=== PATIENT | female | born 1935 | race Caucasian/White ===

== ENCOUNTER 2016-10-19 13:55 | Inpatient (IN) | payer OTHER ==
[~2016-10-19] VITALS: Ht 162.6 cm; Wt 89.5 kg
[~2016-10-19 13:55] MED LIST: AMLO-145 PO; ASPI-716 PO; BENA1TAB13 PO; DONE5TAB32 PO; GABA300S PO; HYDR-3672 PO; MECL25TA PO; METF500T4 PO; NITR-58 PO
[2016-10-19] MEDS ORDERED: FAMOTIDINE 20 MG INJ IV STA (14:55)
[2016-10-19] MEDS ORDERED: ONDANSETRON 4 MG INJ IV STA (14:55)
[2016-10-19] MEDS ORDERED: SOD CHLORIDE 0.9% 1,000 ML IV STA ×2 (14:55→16:47)
[2016-10-19] MEDS ORDERED: GABA300C16 PO (15:18)
[2016-10-19] MEDS ORDERED: SIN25100 PO (15:18)
[2016-10-19] MEDS ORDERED: LORA1TAB PO (15:18)
[2016-10-19] MEDS ORDERED: TERB250T9 PO (15:18)
[2016-10-19] MEDS ORDERED: BENA20TA48 PO (15:18)
[2016-10-19] MEDS ORDERED: PARO-37 PO (15:19)
[2016-10-19] MEDS ORDERED: METF1000 PO (15:19)
[2016-10-19] MEDS ORDERED: DONE10TA7 PO (15:19)
[2016-10-19] MEDS ORDERED: ATOR20TA65 PO (15:19)
[2016-10-19] MEDS ORDERED: MECL-77 PO (15:22)
[2016-10-19] MEDS ORDERED: PANT40TA4 PO (15:22)
[2016-10-19] MEDS ORDERED: ASPI-664 PO (15:23)
[2016-10-19] MEDS ORDERED: HYDR-3671 PO (15:23)
[2016-10-19] MEDS ORDERED: AMLO5TAB4 PO (15:23)
--- NOTE | 2016-10-19 15:34 | RADRPT ---
PROCEDURE: XR Chest. CLINICAL INDICATION: Abdominal pain TECHNIQUE: Chest AP portable COMPARISON: None available FINDINGS: The mediastinal structures are unremarkable. There is calcification of the thoracic aorta (consiste nt with atherosclerosis). The heart is normal in size and configuration. The pulmonary vascularity is normal. There are low lung volumes.. No consolidation is identified. The pleural spaces are u nremarkable. The osseous structures are unremarkable. IMPRESSION: Calcification of the thoracic aorta (consistent with atherosclerosis). No evidence for active cardiopulmonary disease. RPTAT: HG[facility] .Prem Valdez MD, MD Date Time Electronically viewed and signed by .Prem Valdez MD, on 10/19/2016 15:33 .B/
[2016-10-19 15:41] LABS: INR 1.06; PROTIME 13.8 Sec (12.2-14.2); PT RATIO 1.1
[2016-10-19 15:43] LABS: CHLORIDE 101 mmol/L (97-110)
[2016-10-19 15:44] LABS: ALBUMIN 3.9 g/dl (3.3-4.9); POTASSIUM 3.1 mmol/L (3.5-5.1); SODIUM 142 mmol/L (135-144)
[2016-10-19 15:47] LABS: ALANINE AMINOTRANSFERASE 11 IU/L (13-69); ALBUMIN/GLOBULIN RATIO 0.95; ALKALINE PHOSPHATASE 75 IU/L (42-121); AMYLASE 65 U/L (11-123); ANION GAP 20 (8-16); ASPARTATE AMINO TRANSFERASE 17 IU/L (15-46); BILIRUBIN,INDIRECT 0.8 mg/dl (0-1.1); BILIRUBIN,TOTAL 0.8 mg/dl (0.2-1.3); BLOOD UREA NITROGEN 12 mg/dl (7-20); CALCIUM 9.3 mg/dl (8.4-10.2); CARBON DIOXIDE 24 mmol/L (21-31); CREATININE 0.61 mg/dl (0.44-1.00); GLUCOSE 242 mg/dl (70-220)
[2016-10-19 16:04] LABS: BASOPHILS % 0.4 % (0.0-2.0); EOSINOPHILS # 0.1 10^3/ul (0.0-0.5); EOSINOPHILS % 0.8 % (0.0-7.0); HEMATOCRIT 40.3 % (37.0-47.0); HEMOGLOBIN 13.6 g/dl (12.0-16.0); LYMPHOCYTES # 1.8 10^3/ul (0.8-2.9); LYMPHOCYTES % 20.1 % (15.0-51.0); MEAN CORPUSCULAR HEMOGLOBIN 28.5 pg (29.0-33.0); MEAN CORPUSCULAR HGB CONC 33.6 g/dl (32.0-37.0); MEAN CORPUSCULAR VOLUME 84.7 fl (82.0-101.0); MEAN PLATELET VOLUME 8.3 fl (7.4-10.4); MONOCYTE # 0.5 10^3/ul (0.3-0.9); MONOCYTES % 5.3 % (0.0-11.0); NEUTROPHIL # 6.4 10^3/ul (1.6-7.5); NEUTROPHILS % 73.4 % (39.0-77.0); PLATELET COUNT 298 10^3/UL (140-440); RED BLOOD COUNT 4.76 10^6/ul (4.20-5.40); UNCORRECTED WBC 8.7 10^3/ul (4.8-10.8); WHITE BLOOD COUNT 8.7 10^3/ul (4.8-10.8)
[2016-10-19 16:05] LABS: CONDITION 1; TROPONIN-I < 0.012 ng/ml (0.00-0.12)
[2016-10-19 17:23] LABS: ADD UMIC YES; URINE BILIRUBIN (Dip) NEGATIVE (NEGATIVE); URINE BLOOD (Dip) NEGATIVE (NEGATIVE); URINE COLOR YELLOW (YELLOW); URINE KETONES (Dip) NEGATIVE (NEGATIVE); URINE LEUKOCYTE ESTERASE (Dip) 1+ (NEGATIVE); URINE NITRITE (Dip) NEGATIVE (NEGATIVE); URINE TOTAL PROTEIN (Dip) 1+ (NEGATIVE); URINE UROBILINOGEN (Dip) 0.2 E.U./dL (0.1-1.0)
[2016-10-19 17:30] VITALS: TEMP 98.9
[2016-10-19 17:34] LABS: BACTERIA,URINE MODERATE; SQUAMOUS EPITHELIAL CELL,UR MODERATE; URINE RBCS 0-2 /HPF (0)
[2016-10-19] MEDS ORDERED: CEFTRIAXONE 1 GM/50 ML (PMX) 50 ML IVPB ONE (18:30)
[2016-10-19] MEDS ORDERED: ONDANSETRON 4 MG INJ IV PRN ×2 (19:30→22:30)
[2016-10-19] MEDS ORDERED: ACETAMINOPHEN 325 MG TAB PO PRN ×2 (19:30→22:30)
[2016-10-19] MEDS ORDERED: ASPIRIN 325 MG TAB PO ONE (19:30)
[2016-10-19] MEDS ORDERED: SODIUM CHLORIDE 0.9% 1L BAG IV* STA (19:42)
--- NOTE | 2016-10-19 19:42 | ERA ---
ER Documentation Chief Complaint Date/Time DATE: 10/19/16 TIME: 19:32 Chief Complaint CHEST PAIN, ALOC ,NO APPETITE TO EAT HPI This is an 81-year-old Estonian speaking female that was brought into the emergency department by her son with complaints of 2 weeks of generalized myalgias, anorexia, painful urination and loss of urinary incontinence. The patient has also complained of chest pain on the left side but this has been persistent for 2 weeks. The pain does not radiate to the neck arm back or jaw. Is a dull achy sensation that is exacerbated with movement of her left upper extremity and to touch. The pain is 8 out of 10 in intensity. The patient has a history of [id number] diabetes mellitus and hypertension. She has had a previous cerebrovascular accident in 2010 with weakness of the right upper extremity. Her son also indicates she has not been diagnosed with Parkinson's but has developed tremors of the bilateral upper extremities 3 months ago that progressively has worsened. She can ambulate with assistance and with a walker however over the past several days she has felt too weak to ambulate. She has denied a headache or changes in vision. She had a tactile fever with an episode of shaking and chills just prior to arrival and no antipyretics were given. ROS All systems reviewed and are negative except as per history of present illness. Medications Home Meds Reported Medications Aspirin* (Aspirin* EC) 81 Mg Tablet.dr, 81 MG PO DAILY, TAB 10/19/16 Hydralazine Hcl* (Hydralazine Hcl*) 25 Mg Tab, 25 MG PO Q8, #90 TAB 10/19/16 Amlodipine Besylate* (Norvasc*) 5 Mg Tablet, 5 MG PO DAILY, TAB 10/19/16 Meclizine Hcl* (Meclizine Hcl*) 25 Mg Tablet, 25 MG PO Q8H Y for DIZZINESS, TAB 10/19/16 Pantoprazole* (Pantoprazole*) 40 Mg Tablet.dr, 40 MG PO DAILY, TAB 10/19/16 Paroxetine Hcl* (Paroxetine*) 20 Mg Tablet, 20 MG PO DAILY, #30 10/19/16 Metformin Hcl* (Metformin Hcl*) 1,000 Mg Tablet, 1000 MG PO BID, #60 10/19/16 Atorvastatin Calcium (Atorvastatin Calcium) 20 Mg Tablet, 20 MG PO QHS, #30 10/19/16 Donepezil* (Aricept*) 10 Mg Tablet, 10 MG PO DAILY, #30 10/19/16 Gabapentin* (Gabapentin*) 300 Mg Capsule, 300 MG PO DAILY, #30 10/19/16 Terbinafine Hcl* (Terbinafine Hcl*) 250 Mg Tablet, 250 MG PO DAILY, #30 10/19/16 Benazepril Hcl* (Benazepril Hcl*) 20 Mg Tablet, 20 MG PO DAILY, #60 10/19/16 Lorazepam* (Lorazepam*) 1 Mg Tablet, 1 MG PO DAILY for ANXIETY, #30 10/19/16 Carbidopa-Levodopa* (Sinemet*) 25-100 Mg Tab, 1 TAB PO DAILY, #30 10/19/16 Discontinued Reported Medications Metformin* (Glucophage*) 500 Mg Tab, 500 MG PO BID 08/25/13 Amlodipine Besylate* (Amlodipine Besylate*) 5 Mg Tablet, 5 MG PO DAILY 08/25/13 Meclizine Hcl (Motion Relief) 25 Mg Tablet, 25 MG PO BID 08/25/13 Hydralazine Hcl* (Apresoline*) 50 Mg Tab, 50 MG PO TID 08/25/13 Gabapentin (GABAPENTIN) 300 Mg/6 Ml Solution, 300 MG PO HS 08/25/13 Benazepril-Hydrochlorothiazide (Benazepril-Hydrochlorothiazide) 1 Each Tablet, 1 EACH PO BID 08/25/13 Aspirin* (Ecotrin*) 81 Mg Tablet.dr, 81 MG PO DAILY 08/25/13 Donepezil* (Aricept*) 5 Mg Tablet, 5 MG PO daily 08/25/13 Discontinued Scripts Nitrofurantoin Monohyd Macrocr* (Macrobid*) 100 Mg Capsr, 100 MG PO BID for 7 Days, CAP Prov:CARLI PEÑA MD 06/30/16 Allergies Allergies: Coded Allergies: No Known Allergy (Unverified , 08/25/13) PMhx/Soc History of Surgery: No Anesthesia Reaction: No Hx Neurological Disorder: No Hx Respiratory Disorders: No Hx Cardiac Disorders: Yes (htn) Hx Psychiatric Problems: No Hx Miscellaneous Medical Probl: No Hx Alcohol Use: No Hx Substance Use: No Hx Tobacco Use: No Smoking Status: Never smoker Physical Exam Vitals Vital Signs Date Time Temp Pulse Resp B/P Pulse Ox O2 Delivery O2 Flow Rate FiO2 10/19/16 17:30 98.9 84 22 132/84 99 Room Air 10/19/16 15:58 99.6 98 24 142/92 99 Room Air 10/19/16 15:00 Nasal Cannula 10/19/16 14:21 98.4 138 25 136/106 98 Physical Exam Constitutional:Well-developed. Well-nourished. HEENT:Normocephalic. Atraumatic.Pupils were equal round reactive to light. Very dry mucous membranes.No tonsillar exudates. Neck: No nuchal rigidity. No lymphadenopathy. No posterior cervical spine tenderness or step-offs. Respiratory: Not using accessory muscles of respiration.Lungs were clear to auscultation bilaterally. No rhonchi. No rales. No wheezing. Cardiovascular: Regular rate regular rhythm.No murmurs. No rubs were appreciated.S1, S2 normal. Distal pulses are palpable 2+ bilaterally. Reproducible left chest wall tenderness with no crepitus no ecchymosis no flail chest peer GI: Abdomen was soft. Nontender. Non Distended. No pulsatile abdominal masses or bruits. No rebound. No guarding. Bowel sounds were present and normal. Muscle skeletal: Full range of motion of both the bilateral lower extremities. Muscular strength 2 out of 5 in the right upper extremity. Full range of motion of the left upper extremity. Skin: No petechia, no purpura. No lesions on the palms or the soles of the feet. No maculopapular rash. NEURO: Patient was alert, awake, orientated x3.No facial droop. Gait not observed patient was too weak to ambulate. speech had regular rate and rhythm. No focal neurological deficits. Resting tremor of the bilateral upper extremities more prominent on the right than the left Result Diagram: 10/19/16 1520 10/19/16 1520 Results 24 hrs Laboratory Tests Test 10/19/16 15:20 10/19/16 15:35 10/19/16 16:50 Activated Partial Thromboplast Time 26.0Sec Alanine Aminotransferase (ALT/SGPT) 11IU/L Albumin 3.9g/dl Albumin/Globulin Ratio 0.95 Alkaline Phosphatase 75IU/L Amylase Level 65U/L Anion Gap 20 Aspartate Amino Transf (AST/SGOT) 17IU/L Basophils # 0.010^3/ul Basophils % 0.4% Blood Morphology Comment Blood Urea Nitrogen 12mg/dl Calcium Level 9.3mg/dl Carbon Dioxide Level 24mmol/L Chloride Level 101mmol/L Creatinine 0.61mg/dl Direct Bilirubin 0.00mg/dl Eosinophils # 0.110^3/ul Eosinophils % 0.8% Globulin 4.10g/dl Glucose Level 242mg/dl Hematocrit 40.3% Hemoglobin 13.6g/dl INR International Normalized Ratio 1.06 Indirect Bilirubin 0.8mg/dl Lipase 49U/L Lymphocytes # 1.810^3/ul Lymphocytes % 20.1% Mean Corpuscular Hemoglobin 28.5pg Mean Corpuscular Hemoglobin Concent 33.6g/dl Mean Corpuscular Volume 84.7fl Mean Platelet Volume 8.3fl Monocytes # 0.510^3/ul Monocytes % 5.3% Neutrophils # 6.410^3/ul Neutrophils % 73.4% Nucleated Red Blood Cells # 0.010^3/ul Nucleated Red Blood Cells % 0.0/100WBC Platelet Count 80302^3/UL Potassium Level 3.1mmol/L Prothrombin Time 13.8Sec Prothrombin Time Ratio 1.1 Red Blood Count 4.7610^6/ul Red Cell Distribution Width 14.0% Sodium Level 142mmol/L Total Bilirubin 0.8mg/dl Total Protein 8.0g/dl Troponin I < 0.012ng/ml White Blood Count 8.710^3/ul Lactic Acid Level 3.3mmol/L Urine Bacteria MODERATE Urine Bilirubin NEGATIVE Urine Clarity CLEAR Urine Color YELLOW Urine Glucose 0.5%% Urine Hemoglobin NEGATIVE Urine Ketones NEGATIVE Urine Leukocyte Esterase 1+ Urine Microscopic RBC 0-2/HPF Urine Microscopic WBC 10-25/HPF Urine Nitrite NEGATIVE Urine Specific Oriental 1.025 Urine Squamous Epithelial Cells MODERATE Urine Total Protein 1+ Urine Urobilinogen 0.2 E.U./dL Urine pH 5.5 Current Medications Medications (Trade) Dose Ordered Sig/Santiago Route PRN Reason Start Time Stop Time Status Last Admin Dose Admin Sodium Chloride (NS) 1,000 ml @ 1,000 mls/hr Q1H STAT IV 10/19/16 14:55 10/19/16 15:54 DC 10/19/16 15:13 Ondansetron HCl (Zofran Inj) 4 mg ONCE STAT IV 10/19/16 14:55 10/19/16 14:58 DC 10/19/16 15:13 Famotidine 20 mg 20 mg ONCE STAT IV 10/19/16 14:55 10/19/16 14:58 DC 10/19/16 15:13 Sodium Chloride 1,000 ml @ 1,000 mls/hr Q1H STAT IV 10/19/16 16:47 10/19/16 17:46 DC 10/19/16 18:20 Ceftriaxone Sodium (Rocephin) 50 ml @ 100 mls/hr ONCE ONCE IVPB 10/19/16 18:30 10/19/16 18:59 DC Aspirin (Aspirin) 325 mg ONCE ONCE PO 10/19/16 19:30 10/19/16 19:31 DC Ondansetron HCl (Zofran Inj) 4 mg ER BRIDGE PRN IV NAUSEA AND/OR VOMITING 10/19/16 19:30 10/20/16 19:29 Acetaminophen (Tylenol Tab) 650 mg ER BRIDGE PRN PO MILD PAIN/FEVER 10/19/16 19:30 10/20/16 19:29 Sodium Chloride (NS) 2,640 ml BOLUS OVER 2 HOURS STAT IV* 10/19/16 19:42 10/19/16 19:43 DC Potassium Chloride (Klor-Con 10) 10 meq ONCE ONCE PO 10/19/16 20:00 10/19/16 20:01 UNV Procedures/MDM The patient presented to the emergency department complaining of chest pain. My clinical evaluation and workup was to distinguish minor causes of chest pain from acute life threatening cardiopulmonary causes such as myocardial infarction , pulmonary embolism, aortic dissection, esophageal rupture, cardiac tamponade, The patient was placed on a monitoring engineer, continuous pulse oximetry and IV access established by nursing staff. The patients chest pain was reproduced by palpation and horizontal flexion of the arms. It was my clinical impression that the pain was a result of inflammation of the skin and subcutaneous structures of the chest wall versus myocardial ischemia. The patient's troponin was normal. 12 Lead EKG tracing ordered and reviewed by myself showed: Normal sinus rhythm of 95 bpm and no arrhythmia. W[place] interval normal. QRS duration normal. No ST segment elevation No ST segment depression. No changes consistent with acute ischemia. The patient had been given aspirin p.o. The patient also had a urinary tract infection and was given IV ceftriaxone after urine culture had been obtained. The patient's lactic acid was elevated at 3.3. However I did not feel the lactic acidosis was a result of sepsis but rather a result of severe dehydration from her anorexia. The patient however did receive at 30 cc/kg bolus of normal saline. The patient will be admitted in serious condition to the hospitalist to the telemetry service for continued IV hydration, antibiotics and serial EKGs and troponins Patient was hyperglycemic without ketosis and her blood glucose was treated with IV fluids. Patient had mild hypokalemia and was supplemented with oral potassium 10 mEq p.o. Departure Diagnosis: Primary Impression: Urinary tract infection Qualified Code: N30.00 - Acute cystitis without hematuria Additional Impressions: Costochondritis, acute Lactic acidosis Severe dehydration Hyperglycemia without ketosis Condition: Serious TONEY MORALES Oct 19, 2016 19:42
[2016-10-19] MEDS ORDERED: POTASSIUM CHLORIDE (SR) 10 MEQ TAB PO ONE (20:00)
[2016-10-19 21:40] VITALS: BP 138/101; RESP 19
[2016-10-19 22:00] VITALS: Ht 162.6 cm; Wt 89.5 kg
[2016-10-19 22:16] VITALS: PULSE 89
[2016-10-19] MEDS ORDERED: MECLIZINE 25 MG TAB PO PRN (22:30)
[2016-10-19] MEDS ORDERED: BACLOFEN 10 MG TAB PO ONE (22:30)
[2016-10-19] MEDS ORDERED: morphine 2 MG INJ IV PRN (22:30)
[2016-10-19] MEDS ORDERED: NACL 0.9% 3 ML SYG IV SCH (22:30)
[2016-10-19] MEDS ORDERED: NITROGLYCERIN (SL) 0.4 MG TAB SL PRN (22:30)
[2016-10-19] MEDS ORDERED: ALBUTEROL/IPRATROPIUM (NEB) 3 ML AMP HHN PRN (22:30)
[2016-10-19] MEDS: INSULIN GLARGINE [LANtus] 3 ML PEN SC SCH (22:57)
[2016-10-19] MEDS ORDERED: GLUCOSE GEL 15 GRAM TUBE PO PRN ×2 (23:00)
[2016-10-19] MEDS ORDERED: GLUCAGON 1 MG INJ IM PRN (23:00)
[2016-10-19] MEDS ORDERED: DEXTROSE 50% 50 ML SYRINGE IV PRN ×2 (23:00)
[2016-10-19] MEDS ORDERED: GLUCOSE GEL 15 GRAM TUBE BUCCAL PRN (23:00)
[2016-10-20] VITALS (13 sets, daily range): BP systolic 140–186; BP diastolic 66–90; PULSE 63–92; RESP 17–18
[2016-10-20] MEDS: ACCUCHECK XX SCH (01:14)
[2016-10-20 02:08] LABS: CK-MB 1.27 ng/ml (0.0-2.4)
[2016-10-20 02:11] LABS: TROPONIN-I 0.032 ng/ml (0.00-0.12)
[2016-10-20] MEDS: PANTOPRAZOLE (EC) 40 MG TAB PO SCH (05:24)
[2016-10-20 07:36] LABS: BASOPHILS % 0.1 % (0.0-2.0); EOSINOPHILS # 0.1 10^3/ul (0.0-0.5); EOSINOPHILS % 1.9 % (0.0-7.0); HEMATOCRIT 33.4 % (37.0-47.0); HEMOGLOBIN 11.5 g/dl (12.0-16.0); LYMPHOCYTES # 2.1 10^3/ul (0.8-2.9); LYMPHOCYTES % 30.8 % (15.0-51.0); MEAN CORPUSCULAR HEMOGLOBIN 28.9 pg (29.0-33.0); MEAN CORPUSCULAR HGB CONC 34.3 g/dl (32.0-37.0); MEAN CORPUSCULAR VOLUME 84.2 fl (82.0-101.0); MEAN PLATELET VOLUME 7.7 fl (7.4-10.4); MONOCYTE # 0.5 10^3/ul (0.3-0.9); MONOCYTES % 7.1 % (0.0-11.0); NEUTROPHIL # 4.2 10^3/ul (1.6-7.5); NEUTROPHILS % 60.1 % (39.0-77.0); PLATELET COUNT 272 10^3/UL (140-440); RED BLOOD COUNT 3.97 10^6/ul (4.20-5.40); RED CELL DISTRIBUTION WIDTH 13.7 % (11.5-14.5); UNCORRECTED WBC 6.9 10^3/ul (4.8-10.8); WHITE BLOOD COUNT 6.9 10^3/ul (4.8-10.8)
[2016-10-20 07:43] LABS: CONDITION 1
[2016-10-20 07:48] LABS: ALBUMIN 3.3 g/dl (3.3-4.9)
[2016-10-20 07:49] LABS: POTASSIUM 3.1 mmol/L (3.5-5.1)
[2016-10-20] MEDS: INSULIN ASPART [NOVOLOG] 3 ML PEN SC SCH ×4 (07:49→21:22)
[2016-10-20 07:51] LABS: ALBUMIN/GLOBULIN RATIO 1.1; BILIRUBIN,INDIRECT 0.7 mg/dl (0-1.1); BILIRUBIN,TOTAL 0.7 mg/dl (0.2-1.3); CREATININE 0.58 mg/dl (0.44-1.00); TOTAL PROTEIN 6.3 g/dl (6.1-8.1)
[2016-10-20 07:52] LABS: CALCIUM 8.6 mg/dl (8.4-10.2); MAGNESIUM 1.3 mg/dl (1.7-2.5)
[2016-10-20 08:07] LABS: CK-MB 1.28 ng/ml (0.0-2.4)
[2016-10-20 08:11] LABS: TROPONIN-I 0.041 ng/ml (0.00-0.12)
[2016-10-20 08:19] LABS: THYROID STIMULATING HORMONE 2.08 MIU/L (0.465-4.680)
[2016-10-20] MEDS: DONEPEZIL 10 MG TAB PO SCH (08:43)
[2016-10-20] MEDS: PAROXETINE 20 MG TAB PO SCH (08:43)
[2016-10-20] MEDS: CARBIDOPA/LEVODOPA (25/100) TAB PO SCH (08:43)
[2016-10-20] MEDS: ASPIRIN (EC) 81 MG TAB PO SCH (08:43)
[2016-10-20] MEDS: GABAPENTIN 300 MG CAP PO SCH (08:43)
[2016-10-20] MEDS: ENOXAPARIN 40 MG/0.4 ML SYG SC SCH (08:44)
[2016-10-20] MEDS: AMLODIPINE 5 MG TAB PO SCH (08:44)
[2016-10-20] MEDS: TERBINAFINE 250 MG TAB PO SCH (08:44)
[2016-10-20] MEDS: BENAZEPRIL 20 MG TAB PO SCH (08:44)
[2016-10-20] MEDS ORDERED: LORAZEPAM 1 MG TAB PO SCH (09:00)
[2016-10-20] MEDS: CIPROFLOXACIN 400MG/D5W 200 ML IVPB SCH ×2 (09:14→21:16)
--- NOTE | 2016-10-20 09:40 | HP ---
DATE OF ADMISSION: 10/19/2016 TIME SEEN: 2300. CHIEF COMPLAINT: Chest pain, generalized body pain and decreased appetite and dysuria. HISTORY OF PRESENT ILLNESS: The patient is an 81-year-old female with a history of dementia, questio nable Parkinson's disease, CVA x3, hypertension, dyslipidemia, diabetes who presented to the emergen cy department with the above stated chief complaint. Her symptoms have been going on for the past 2 weeks. Also there was a report of painful urination as well as urinary incontinence. Chest pain is left-side and is worse with palpation as well as movement of left arm. The patient also has been e xperiencing tremors of her bilateral upper extremity for the past 3 months, which has been progressi vely getting worse. There was no official diagnosis of Parkinson's disease. When patient presented to the ER she was tachycardic with a heart rate of 138. Otherwise, the rest of her vitals were stable. Laboratory value shows a potassium of 3.1 and glucose of 242. Otherwise , CBC and CMP are within normal limits. Initial lactic acid 3.3, repeat 1.3. Urinalysis is consiste nt with a UTI. IMAGING DATA: Chest x-ray shows no evidence for acute cardiopulmonary disease. The patient was giv en aspirin, Zofran, and was started on Rocephin. REVIEW OF SYSTEMS: Negative except as mentioned in HPI. PAST MEDICAL HISTORY: As per HPI. ALLERGIES: NO KNOWN DRUG ALLERGIES. HOME MEDICATIONS: 1. Terbinafine. 2 Donepezil. 3. Amlodipine. 4. Lipitor. 5. Benazepril. 6. Hydralazine. 7. Aspirin. 8. Sinemet. 9. Gabapentin. 10. Ativan. 11. Paroxetine. 12. Meclizine. 13. Protonix. 14. Metformin. PHYSICAL EXAMINATION: VITAL SIGNS: Blood pressure 138/101, heart rate 91, respiratory rate 19, temperature 97.9, oxygen s aturation 95% on room air. GENERAL: The patient is [place] speaking only, but answering all questions . No acute distres s. She is lying in bed. She looks comfortable. HEENT: No obvious head deformity. Pupils are reactive to light. CARDIOVASCULAR: Tachycardic with regular rhythm. LUNGS: Clear. ABDOMEN: Soft, nontender. No grimaces noted on palpation. There are positive bowel sounds. EXTREMITIES: There is decreased strength on the right upper extremity, also a tremor was noted on t he bilateral upper extremity, right worse on the left. LABORATORY: Proton pump was mentioned in the HPI. IMAGING: Chest x-ray, as mentioned in HPI. IMPRESSION: 1. Urinary tract infection. 2. Chest pain, most likely musculoskeletal. 3. Lactic acidosis. 4. Resting tremor, possibly from Parkinson's. 5. History of stroke cerebrovascular accident x3. 6. Hypertension. 7. History of dyslipidemia. 8. Diabetes. 9. She will be treated for urinary tract infection. Will follow up on urine culture results. Her chest pain is reproducible on palpation and also it is exacerbated by movement of the left arm, so it seems like this is musculoskeletal. Her initial tro ponin is negative and her EKG was no ST-T wave abnormalities. She will however be continued with her home aspirin, Lipitor, DAVID inhibitor. As needed nitro and morphine will be written. For her diabet es, she will be on insulin. We will also continue her home medications including her trying Sinemet for her tremor. She will have physical therapy prior to discharge. Further workup and management per clinical course. Dictated By: ALISON HATCH/JENNIFER Conf#: [id number] DID#: [id number]
[2016-10-20] MEDS: LORAZEPAM 2 MG INJ IV PRN (11:51)
--- NOTE | 2016-10-20 13:01 | RADRPT ---
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 Physician: ALISON MCCULLOUGH Quality: Technically Difficult Study Procedures: Transthoracic echocardiogram with complete 2D, M-Mode, and doppler examination. Indications: Chest Pain. 2D/M Mode Doppler Measurement Value Normal Ranges Measurement Value Normal Ranges LVIDd 2D 4.5 3.5 - 5.6 cm AV Peak Ruel 1.7 m/sec LVIDs 2D 1.8 2.1 - 4.1 cm AV Peak PG 11.0 mmHg FS 2D 59.4 % LVOT Peak Ruel 1.4 m/sec LVPWd 2D 0.9 0.6 - 1.1 cm LVOT Peak PG 7.0 mmHg IVSd 2D 1.0 0.6 - 1.1 cm MV E Peak Ruel 0.7 m/sec IVS/LVPW 2D 1.2 MV A Peak Ruel 1.2 m/sec AoR Diam 2D 2.9 2.0 - 3.7 cm MV E/A 0.6 LA/Ao 2D 1 0 - 1 MV Decel Time 232 msec EDV 2D 89.9 cm3 MV E/A 0.6 ESV 2D 6.0 cm3 TR Peak Ruel 2.3 m/sec LA Dimen 2D 3.3 2.3 - 4.0 cm TR Peak PG 22.0 mmHg RVSP 30.0 mmHg Findings Left Ventricle: Normal left ventricular systolic function. Normal left ventricular cavity size. Normal left ventricular wall thickness. Ejection fraction is visually estimated at 60 %. Tissue Doppler/Mitral Doppler indices are consistent with impaired relaxation (Stage I diastolic dysfunction). Right Ventricle: Normal right ventricular size. Normal right ventricular systolic function. Left Atrium: The left atrium is normal in size. Right Atrium: The right atrium is normal in size. Mitral Valve: Mild mitral leaflet calcification. Moderate mitral annular calcification. Trace mitral regurgitation. Aortic Valve: No hemodynamically significant aortic stenosis by doppler. Aortic cusps appear mildly calcified. Trace aortic valve regurgitation. Tricuspid Valve: Normal appearance of the tricuspid valve. Estimated peak PA systolic pressure 30 mmHg. There is trace tricuspid regurgitation. Pericardium: Normal pericardium with no significant pericardial effusion. Aorta: Normal aortic root. IVC: Normal size and no respiratory collapse consistent with elevated right atrial pressure. Conclusions 1.Normal left ventricular systolic function. Normal left ventricular cavity size. Normal left ventricular wall thickness. Ejection fraction is visually estimated at 60 %. Tissue Doppler/Mitral Doppler indices are consistent with impaired relaxation (Stage I diastolic dysfunction). 2.Mild mitral leaflet calcification. Moderate mitral annular calcification. Trace mitral regurgitation. 3.No hemodynamically significant aortic stenosis by doppler. Aortic cusps appear mildly calcified. Trace aortic valve regurgitation. 4.Normal appearance of the tricuspid valve. Estimated peak PA systolic pressure 30 mmHg. There is trace tricuspid regurgitation. Electronically Signed By: David Rodriguez 20-Oct-2016 13:00:55 -0800 Patient Name: RILEY SANTIZO Study Date: 20-Oct-[id number]
--- NOTE | 2016-10-20 16:28 | PN ---
Date/Time of Note Date/Time of Note DATE: 10/20/16 TIME: 16:21 Assessment/Plan VTE Prophylaxis VTE Prophylaxis Intervention: LMWH Lines/Catheters IV Catheter Type (from Nrsg): Mid Line Urinary Cath still in place: No Assessment/Plan Assessment/Plan 1. Urinary tract infection. on cipro 2. Pain at lower neck, no chest pain slightly elevated troponin, follow up with cardiology 3. Lactic acidosis. 4. Resting tremor, possibly from Parkinson's. 5. History of stroke cerebrovascular accident x3. 6. Hypertension. stable 7. History of dyslipidemia. 8. Diabetes. controlled Subjective 24 Hr Interval Summary Free Text/Dictation no chest pain or shortness of breath. dysuria Exam/Review of Systems Vital Signs Vitals Vital Signs Date Time Temp Pulse Resp B/P Pulse Ox O2 Delivery O2 Flow Rate FiO2 10/20/16 16:00 98.2 88 18 141/66 95 10/19/16 21:08 Room Air Exam Constitutional: alert, oriented, well developed Psych: nl mood/affect, no complaints Head: atraumatic, normocephalic Eyes: EOMI, PERRL, nl conjunctiva, nl lids, nl sclera ENMT: nl external ears & nose, nl lips & teeth, nl nasal mucosa & septum Neck: non-tender, supple Respiratory: clear to auscultation, normal air movement, No congested cough, No crackles/rales, No diminished breath sounds, No intercostal retraction, No labored breathing, No respirations, No tactile fremitus, No wheezing Cardiovascular: nl pulses, regular rate and rhythm, No S3, No S4, No bruits, No diastolic murmur, No edema, No gallop, No irregular rhythm, No jugular venous distention (JVD), No murmurs/extra sounds, No rub, No systolic murmur Gastrointestinal: nl liver, spleen, non-tender, soft, No ascites, No bowel sounds, No distended, No firm, No hepatomegaly, No mass , No rebound or guarding, No splenomegaly, No surgical scars, No tender Musculoskeletal: nl extremities to inspection Extremities: normal pulses, No calf tenderness, No clubbing, No cyanosis, No edema, No palpable cord, No pitting pedal edema, No tenderness Neurological: HOSPITAL MANAGER II-XII intact, nl mental status, nl speech, nl strength Skin: nl turgor, rash or lesions Lymph: nl lymph nodes Results Result Diagram: 10/20/16 0705 10/20/16 0705 Results 24 hrs Laboratory Tests Test 10/19/16 16:50 10/19/16 22:10 10/19/16 22:54 10/20/16 01:12 Urine Bacteria MODERATE Urine Bilirubin NEGATIVE Urine Clarity CLEAR Urine Color YELLOW Urine Glucose 0.5% H Urine Hemoglobin NEGATIVE Urine Ketones NEGATIVE Urine Leukocyte Esterase 1+ H Urine Microscopic RBC 0-2 Urine Microscopic WBC 10-25 Urine Nitrite NEGATIVE Urine Specific Bond 1.025 Urine Squamous Epithelial Cells MODERATE Urine Total Protein 1+ H Urine Urobilinogen 0.2 E.U./dL Urine pH 5.5 Lactic Acid Level 1.3 1.4 Bedside Glucose 144 Test 10/20/16 01:31 10/20/16 07:05 10/20/16 07:29 10/20/16 12:28 Creatine Kinase 62 60 Creatine Kinase Index 2.0 2.1 Creatinine Kinase MB (Mass) 1.27 1.28 Troponin I 0.032 0.041 Alanine Aminotransferase (ALT/SGPT) 21 Albumin 3.3 Albumin/Globulin Ratio 1.10 Alkaline Phosphatase 64 Anion Gap 15 Aspartate Amino Transf (AST/SGOT) 15 Basophils # 0.0 Basophils % 0.1 Blood Morphology Comment Blood Urea Nitrogen 7 Calcium Level 8.6 Carbon Dioxide Level 26 Chloride Level 104 Cholesterol Level 117 Cholesterol/HDL Ratio 3.0 Creatinine 0.58 Direct Bilirubin 0.00 Eosinophils # 0.1 Eosinophils % 1.9 Globulin 3.00 Glucose Level 104 # HDL Cholesterol 39 Hematocrit 33.4 L Hemoglobin 11.5 L Hemoglobin A1c 6.3 H Indirect Bilirubin 0.7 LDL Cholesterol, Calculated 69 Lymphocytes # 2.1 Lymphocytes % 30.8 Magnesium Level 1.3 L Mean Corpuscular Hemoglobin 28.9 L Mean Corpuscular Hemoglobin Concent 34.3 Mean Corpuscular Volume 84.2 Mean Platelet Volume 7.7 Monocytes # 0.5 Monocytes % 7.1 Neutrophils # 4.2 Neutrophils % 60.1 Nucleated Red Blood Cells # 0.0 Nucleated Red Blood Cells % 0.0 Platelet Count 272 Potassium Level 3.1 L Red Blood Count 3.97 L Red Cell Distribution Width 13.7 Sodium Level 142 Thyroid Stimulating Hormone (TSH) 2.080 Total Bilirubin 0.7 Total Protein 6.3 # Triglycerides Level 47 White Blood Count 6.9 # Bedside Glucose 96 130 Medications Medications Current Medications Lorazepam (Ativan) 0.5 mg Q6H PRN IV ANXIETY Last administered on 10/20/16 11: 51; Admin Dose 0.5 MG; Start 10/19/16 at 22:30 Ondansetron HCl (Zofran Inj) 4 mg Q6H PRN IV NAUSEA AND/OR VOMITING; Start at 22:30 Nitroglycerin (Nitroglycerin (Sl Tab) 0.4 Mg) 1 tab Q5M PRN SL CHEST PAIN; Start 10/19/16 at 22:30 Acetaminophen (Tylenol Tab) 650 mg Q6H PRN PO PAIN LEVEL 1-3 OR FEVER; Start at 22:30 Morphine Sulfate (morphine) 2 mg Q4H PRN IV PAIN LEVEL 7-10; Start 10/19/16 at 22:30 Enoxaparin Sodium (Lovenox) 40 mg DAILY SC Last administered on 10/20/16 08:44 ; Admin Dose 40 MG; Start 10/20/16 at 09:00 Amlodipine Besylate (Norvasc) 5 mg DAILY PO Last administered on 10/20/16 08:44 ; Admin Dose 5 MG; Start 10/20/16 at 09:00 Aspirin (Halfprin) 81 mg DAILY PO Last administered on 10/20/16 08:43; Admin Dose 81 MG; Start 10/20/16 at 09:00 Atorvastatin Calcium (Lipitor) 20 mg QHS PO ; Start 10/20/16 at 21:00 Benazepril HCl (Lotensin) 20 mg DAILY PO Last administered on 10/20/16 08:44; Admin Dose 20 MG; Start 10/20/16 at 09:00 Carbidopa/Levodopa (Sinemet (25/ 100)) 1 tab DAILY PO Last administered on 08:43; Admin Dose 1 TAB; Start 10/20/16 at 09:00 Donepezil HCl (Aricept) 10 mg DAILY PO Last administered on 10/20/16 08:43; Admin Dose 10 MG; Start 10/20/16 at 09:00 Gabapentin (Neurontin) 300 mg DAILY PO Last administered on 10/20/16 08:43; Admin Dose 300 MG; Start 10/20/16 at 09:00 Hydralazine HCl (Apresoline) 25 mg Q8 PO Last administered on 10/20/16 12:08; Admin Dose 25 MG; Start 10/19/16 at 22:30 Meclizine HCl (Antivert) 25 mg Q8H PRN PO DIZZINESS; Start 10/19/16 at 22:30 Pantoprazole (Protonix Tab) 40 mg DAILY@06 PO Last administered on 10/20/16 05: 24; Admin Dose 40 MG; Start 10/20/16 at 06:00 Paroxetine HCl (Paxil) 20 mg DAILY PO Last administered on 10/20/16 08:43; Admin Dose 20 MG; Start 10/20/16 at 09:00 Terbinafine HCl 250 mg 250 mg DAILY PO Last administered on 10/20/16 08:44; Admin Dose 250 MG; Start 10/20/16 at 09:00 Ciprofloxacin/ Dextrose (Cipro Ivpb) 200 ml @ 200 mls/hr Q12 IVPB Last administered on 10/20/16 09:14; Admin Dose 200 MLS/HR; Start 10/20/16 at 09:00 Insulin Glargine (Lantus) 12 unit QHS SC Last administered on 10/19/16 22:57; Admin Dose 12 UNIT; Start 10/19/16 at 22:30 Diagnostic Test (Pha) (Accucheck) 1 ea 02 XX ; Start 10/20/16 at 02:00 Miscellaneous Information 1 ea NOTE XX ; Start 10/19/16 at 23:00 Glucose (Glutose) 15 gm Q15M PRN PO DECREASED GLUCOSE; Start 10/19/16 at 23:00 Glucose (Glutose) 22.5 gm Q15M PRN PO DECREASED GLUCOSE; Start 10/19/16 at 23: 00 Dextrose (D50w Syringe) 25 ml Q15M PRN IV DECREASED GLUCOSE; Start 10/19/16 at 23:00 Dextrose (D50w Syringe) 50 ml Q15M PRN IV DECREASED GLUCOSE; Start 10/19/16 at 23:00 Glucagon (Glucagen) 1 mg Q15M PRN IM DECREASED GLUCOSE; Start 10/19/16 at 23:00 Glucose (Glutose) 15 gm Q15M PRN BUCCAL DECREASED GLUCOSE; Start 10/19/16 at 23 :00 YI FLORES MD Oct 20, 2016 16:28
[2016-10-20] MEDS ORDERED: POTASSIUM CHLORIDE (SR) 20 MEQ TAB PO STA (16:29)
[2016-10-20] MEDS ORDERED: MAGNESIUM SULFATE 2 GM/50 ML 50 ML IVPB ONE (16:30)
[2016-10-20] MEDS: ATORVASTATIN 20 MG TAB PO SCH (21:12)
[2016-10-20] MEDS: INSULIN GLARGINE [LANtus] 3 ML PEN SC SCH (21:22)
[2016-10-21] VITALS (12 sets, daily range): BP systolic 116–180; BP diastolic 58–88; PULSE 69–97; RESP 15–19
[2016-10-21] MEDS: ACCUCHECK XX SCH (02:00)
[2016-10-21] MEDS: LORAZEPAM 2 MG INJ IV PRN (05:24)
[2016-10-21] MEDS: PANTOPRAZOLE (EC) 40 MG TAB PO SCH (05:24)
[2016-10-21 07:53] LABS: BASOPHILS % 0.3 % (0.0-2.0); EOSINOPHILS % 0.5 % (0.0-7.0); HEMATOCRIT 35.3 % (37.0-47.0); HEMOGLOBIN 12.1 g/dl (12.0-16.0); LYMPHOCYTES # 1.3 10^3/ul (0.8-2.9); LYMPHOCYTES % 16.7 % (15.0-51.0); MEAN CORPUSCULAR HEMOGLOBIN 28.8 pg (29.0-33.0); MEAN CORPUSCULAR HGB CONC 34.2 g/dl (32.0-37.0); MEAN CORPUSCULAR VOLUME 84.1 fl (82.0-101.0); MEAN PLATELET VOLUME 7.9 fl (7.4-10.4); MONOCYTE # 0.4 10^3/ul (0.3-0.9); MONOCYTES % 5.3 % (0.0-11.0); NEUTROPHILS % 77.2 % (39.0-77.0); PLATELET COUNT 310 10^3/UL (140-440); RED BLOOD COUNT 4.19 10^6/ul (4.20-5.40); RED CELL DISTRIBUTION WIDTH 14.2 % (11.5-14.5); UNCORRECTED WBC 7.8 10^3/ul (4.8-10.8); WHITE BLOOD COUNT 7.8 10^3/ul (4.8-10.8)
[2016-10-21 07:58] LABS: POTASSIUM 3.3 mmol/L (3.5-5.1)
[2016-10-21 08:00] LABS: CREATININE 0.52 mg/dl (0.44-1.00)
[2016-10-21 08:01] LABS: MAGNESIUM 1.8 mg/dl (1.7-2.5)
[2016-10-21 08:04] LABS: CONDITION 1
[2016-10-21] MEDS: CIPROFLOXACIN 400MG/D5W 200 ML IVPB SCH ×2 (08:52→20:20)
[2016-10-21] MEDS: CARBIDOPA/LEVODOPA (25/100) TAB PO SCH (08:55)
[2016-10-21] MEDS: AMLODIPINE 5 MG TAB PO SCH (08:55)
[2016-10-21] MEDS: DONEPEZIL 10 MG TAB PO SCH (08:55)
[2016-10-21] MEDS: PAROXETINE 20 MG TAB PO SCH (08:55)
[2016-10-21] MEDS: ASPIRIN (EC) 81 MG TAB PO SCH (08:55)
[2016-10-21] MEDS: GABAPENTIN 300 MG CAP PO SCH (08:55)
[2016-10-21] MEDS: TERBINAFINE 250 MG TAB PO SCH (08:55)
[2016-10-21] MEDS: BENAZEPRIL 20 MG TAB PO SCH (08:55)
[2016-10-21] MEDS: INSULIN ASPART [NOVOLOG] 3 ML PEN SC SCH ×4 (08:56→20:23)
[2016-10-21] MEDS: ENOXAPARIN 40 MG/0.4 ML SYG SC SCH (08:56)
[2016-10-21] MEDS ORDERED: POTASSIUM CHLORIDE (SR) 20 MEQ TAB PO STA (15:04)
[2016-10-21] MEDS ORDERED: CIPR-193 PO (15:27)
--- NOTE | 2016-10-21 15:36 | PN ---
Date/Time of Note Date/Time of Note DATE: 10/21/16 TIME: 15:34 Assessment/Plan VTE Prophylaxis VTE Prophylaxis Intervention: LMWH Lines/Catheters IV Catheter Type (from Nrs): [place] Urinary Cath still in place: No Assessment/Plan Assessment/Plan 1. Urinary tract infection. on cipro 2. Pain at lower neck, no chest pain slightly elevated troponin, follow up with cardiology 3. Lactic acidosis. 4. Resting tremor, possibly from Parkinson's. 5. History of stroke cerebrovascular accident x3. 6. Hypertension. stable 7. History of dyslipidemia. 8. Diabetes. controlled 9. Hypokalemia, KCL Subjective 24 Hr Interval Summary Free Text/Dictation no chest pain, no shortness of breath. afebrile Exam/Review of Systems Vital Signs Vitals Vital Signs Date Time Temp Pulse Resp B/P Pulse Ox O2 Delivery O2 Flow Rate FiO2 10/21/16 12:16 83 10/21/16 11:57 99.0 18 144/88 96 10/19/16 21:08 Room Air Intake and Output 10/20/16 10/20/16 10/21/16 15:00 23:00 07:00 Intake Total 600 ml Balance 600 ml Exam Constitutional: alert, well developed Psych: nl mood/affect, no complaints Head: atraumatic, normocephalic Eyes: EOMI, PERRL, nl conjunctiva, nl lids ENMT: nl external ears & nose, nl lips & teeth, nl nasal mucosa & septum Neck: non-tender, supple Respiratory: clear to auscultation, normal air movement, No congested cough, No crackles/rales, No diminished breath sounds, No intercostal retraction, No labored breathing, No respirations, No tactile fremitus, No wheezing Cardiovascular: nl pulses, regular rate and rhythm, No S3, No S4, No bruits, No diastolic murmur, No edema, No gallop, No irregular rhythm, No jugular venous distention (JVD), No murmurs/extra sounds, No rub, No systolic murmur Gastrointestinal: nl liver, spleen, non-tender, soft, No ascites, No bowel sounds, No distended, No firm, No hepatomegaly, No mass , No rebound or guarding, No splenomegaly, No surgical scars, No tender Musculoskeletal: nl extremities to inspection, nl gait and stance, No joint tenderness, No muscle tone, No muscle weakness, No range of motion, No spine non-tender, No swelling Extremities: normal pulses, No calf tenderness, No clubbing, No cyanosis, No edema, No palpable cord, No pitting pedal edema, No tenderness Neurological: DROSS PULLER II-XII intact, nl mental status, nl speech, nl strength Skin: nl turgor, rash or lesions Lymph: nl lymph nodes Results Result Diagram: 10/21/16 0650 10/21/16 0650 Results 24 hrs Laboratory Tests Test 10/20/16 17:18 10/20/16 21:06 10/21/16 03:00 10/21/16 06:50 Bedside Glucose 200 202 145 Anion Gap 19 H Basophils # 0.0 Basophils % 0.3 Blood Morphology Comment Blood Urea Nitrogen 10 Calcium Level 9.0 Carbon Dioxide Level 23 Chloride Level 103 Creatinine 0.52 Eosinophils # 0.0 Eosinophils % 0.5 Glucose Level 135 Hematocrit 35.3 L Hemoglobin 12.1 Lymphocytes # 1.3 Lymphocytes % 16.7 Magnesium Level 1.8 Mean Corpuscular Hemoglobin 28.8 L Mean Corpuscular Hemoglobin Concent 34.2 Mean Corpuscular Volume 84.1 Mean Platelet Volume 7.9 Monocytes # 0.4 Monocytes % 5.3 Neutrophils # 6.0 Neutrophils % 77.2 H Nucleated Red Blood Cells # 0.0 Nucleated Red Blood Cells % 0.0 Platelet Count 310 Potassium Level 3.3 L Red Blood Count 4.19 L Red Cell Distribution Width 14.2 Sodium Level 142 Troponin I 0.020 White Blood Count 7.8 Test 10/21/16 08:16 10/21/16 11:54 Bedside Glucose 147 184 Medications Medications Current Medications Lorazepam (Ativan) 0.5 mg Q6H PRN IV ANXIETY Last administered on 10/21/16t 05: 24; Admin Dose 0.5 MG; Start 10/19/16 at 22:30 Ondansetron HCl (Zofran Inj) 4 mg Q6H PRN IV NAUSEA AND/OR VOMITING; Start at 22:30 Nitroglycerin (Nitroglycerin (Sl Tab) 0.4 Mg) 1 tab Q5M PRN SL CHEST PAIN; Start 10/19/16 at 22:30 Acetaminophen (Tylenol Tab) 650 mg Q6H PRN PO PAIN LEVEL 1-3 OR FEVER; Start at 22:30 Morphine Sulfate (morphine) 2 mg Q4H PRN IV PAIN LEVEL 7-10; Start 10/19/16 at 22:30 Enoxaparin Sodium (Lovenox) 40 mg DAILY SC Last administered on 10/21/16 08:56 ; Admin Dose 40 MG; Start 10/20/16 at 09:00 Amlodipine Besylate (Norvasc) 5 mg DAILY PO Last administered on 10/21/16 08:55 ; Admin Dose 5 MG; Start 10/20/16 at 09:00 Aspirin (Halfprin) 81 mg DAILY PO Last administered on 10/21/16 08:55; Admin Dose 81 MG; Start 10/20/16 at 09:00 Atorvastatin Calcium (Lipitor) 20 mg QHS PO Last administered on 10/20/16 21:12 ; Admin Dose 20 MG; Start 10/20/16 at 21:00 Benazepril HCl (Lotensin) 20 mg DAILY PO Last administered on 10/21/16 08:55; Admin Dose 20 MG; Start 10/20/16 at 09:00 Carbidopa/Levodopa (Sinemet (25/ 100)) 1 tab DAILY PO Last administered on 08:55; Admin Dose 1 TAB; Start 10/20/16 at 09:00 Donepezil HCl (Aricept) 10 mg DAILY PO Last administered on 10/21/16 08:55; Admin Dose 10 MG; Start 10/20/16 at 09:00 Gabapentin (Neurontin) 300 mg DAILY PO Last administered on 10/21/16 08:55; Admin Dose 300 MG; Start 10/20/16 at 09:00 Hydralazine HCl (Apresoline) 25 mg Q8 PO Last administered on 10/21/16 13:16; Admin Dose 25 MG; Start 10/19/16 at 22:30 Meclizine HCl (Antivert) 25 mg Q8H PRN PO DIZZINESS; Start 10/19/16 at 22:30 Pantoprazole (Protonix Tab) 40 mg DAILY@06 PO Last administered on 10/21/16 05: 24; Admin Dose 40 MG; Start 10/20/16 at 06:00 Paroxetine HCl (Paxil) 20 mg DAILY PO Last administered on 10/21/16 08:55; Admin Dose 20 MG; Start 10/20/16 at 09:00 Terbinafine HCl 250 mg 250 mg DAILY PO Last administered on 10/21/16 08:55; Admin Dose 250 MG; Start 10/20/16 at 09:00 Ciprofloxacin/ Dextrose (Cipro Ivpb) 200 ml @ 200 mls/hr Q12 IVPB Last administered on 10/21/16 08:52; Admin Dose 200 MLS/HR; Start 10/20/16 at 09:00 Insulin Glargine (Lantus) 12 unit QHS SC Last administered on 10/20/16 21:22; Admin Dose 12 UNIT; Start 10/19/16 at 22:30 Diagnostic Test (Pha) (Accucheck) 1 ea 02 XX Last administered on 10/21/16 02: 00; Admin Dose 1 EA; Start 10/20/16 at 02:00 Miscellaneous Information 1 ea NOTE XX ; Start 10/19/16 at 23:00 Glucose (Glutose) 15 gm Q15M PRN PO DECREASED GLUCOSE; Start 10/19/16 at 23:00 Glucose (Glutose) 22.5 gm Q15M PRN PO DECREASED GLUCOSE; Start 10/19/16 at 23: 00 Dextrose (D50w Syringe) 25 ml Q15M PRN IV DECREASED GLUCOSE; Start 10/19/16 at 23:00 Dextrose (D50w Syringe) 50 ml Q15M PRN IV DECREASED GLUCOSE; Start 10/19/16 at 23:00 Glucagon (Glucagen) 1 mg Q15M PRN IM DECREASED GLUCOSE; Start 10/19/16 at 23:00 Glucose (Glutose) 15 gm Q15M PRN BUCCAL DECREASED GLUCOSE; Start 10/19/16 at 23 :00 YI FLORES MD Oct 21, 2016 15:36
[2016-10-21] MEDS: ATORVASTATIN 20 MG TAB PO SCH (20:18)
[2016-10-21] MEDS: INSULIN GLARGINE [LANtus] 3 ML PEN SC SCH (20:30)
--- NOTE | 2016-10-21 21:39 | CONS ---
DATE OF ADMISSION: 10/19/2016 DATE OF CONSULTATION: 10/21/2016 TYPE OF CONSULTATION: Cardiology. REASON FOR CONSULTATION: Chest pain. REQUESTING PHYSICIAN: Dr. Bangura from the hospitalist service. HISTORY OF PRESENT ILLNESS: Ms. Cason is an 81-year-old female with a history of prior CVA x3, h ypertension, dyslipidemia, diabetes mellitus who initially presented with complaints of neck pain an d, per report, chest pain. The patient since admit to the hospital has had somewhat labile blood pr essures, most recently 116/58. The patient has had negative troponins greater than 3, ruling out fo r acute myocardial infarction, underwent a 2D echo interpreted by myself revealing a preserved left ventricular ejection fraction of 60% with diastolic dysfunction; trace aortic, tricuspid and mitral regurgitation. The patient's electrocardiogram on admit had revealed normal sinus rhythm, rate of 9 5 with left axis deviation, borderline anterior R-wave progression, nonspecific ST-T abnormalities. PAST MEDICAL HISTORY: As above in HPI. MEDICATIONS CURRENTLY IN HOSPITAL: 1. Lipitor 20 mg at bedtime. 2. Lovenox ____ mg subcutaneous daily. 3. Norvasc 5 mg daily. 4. Aspirin 81 mg daily. 5. Benazepril 20 mg daily. 6. Sinemet 25/100 one tablet p.o. daily. 7. Aricept 10 mg daily. 8. Neurontin 200 mg daily. 9. Paxil 20 mg daily. 10. Lamisil 250 mg daily. 11. Ciprofloxacin. 12. Hydralazine 25 mg p.o. q.8. 13. Meclizine p.r.n. 14. Lantus 12 units subcutaneous at bedtime. ALLERGIES: NO KNOWN DRUG ALLERGIES. PAST SOCIAL HISTORY: No tobacco, ETOH, illicit drug use. FAMILY HISTORY: No history of sudden cardiac or early CAD. REVIEW OF SYSTEMS: As above in HPI. CONSTITUTIONAL: No fevers, chills. PULMONARY: No current signs of respiratory compromise. GASTROINTESTINAL: No vomiting. GENITOURINARY: No hematuria. MUSCULOSKELETAL: Degenerative joint disease. PSYCHIATRIC: No documented psychiatric history. NEUROLOGIC: Parkinson's. PHYSICAL EXAMINATION: VITAL SIGNS: Temperature of 99.5, blood pressure 116/58, pulse 82, respiratory rate 19, saturating 97%. GENERAL: The patient is alert, awake, in no acute distress. NECK: JVP approximately 8 cm of water. CHEST: Decreased air movement at the bases. HEART: Regular rate and rhythm. Normal S1, S2. I/ systolic murmur. Nondisplaced PMI. ABDOMEN: Positive bowel sounds. Soft. EXTREMITIES: No edema. 1+ pulses bilaterally at posterior tibial. LABORATORY DATA: As above in HPI with most recent from today: Sodium 142, potassium 3.3, creatinin e 0.5, BUN of 10. Troponin negative times greater than 3. White blood cell count 7.8, hemoglobin 1 2.1, platelet count 310. IMAGING STUDIES: As above in HPI. No further imaging for my review at this time. ELECTROCARDIOGRAM: As above in HPI. No further electrocardiograms for my review at this time. IMPRESSION: 1. Chest pain, currently resolved by son at bedside with negative troponins x3 and normal ejection fraction by echocardiogram. 2. Hypertension, labile but currently reasonable. 3. Dyslipidemia. 4. Altered mental state. 5. History of cerebrovascular accident. 6. Neck pain. 7. Parkinson's. 8. Diabetes mellitus. 9. Urinary tract infection. RECOMMENDATIONS: 1. At this time would maintain the patient on telemetry monitoring, follow rhythm and rate closely. 2. Continue the patient's aspirin for prophylaxis against cardiac events. 3. Continue the patient's current Norvasc and benazepril for control of blood pressure as well as h ydralazine. 4. Will give patient sublingual nitroglycerin for any recurrent episodes of chest pain at this time . 5. Check a repeat EKG post rule-out to assess for any significant changes and continue the patient' s current statin therapy. Additionally, the patient will be continued on her antibiotic therapy and continue to get pain control. 6. The patient's electrocardiogram does not show any new changes, and I believe this patient will b e reasonable from cardiac standpoint for discharge with outpatient stress testing for ongoing sympto ms. Thank you for allowing me to take part in the care of this patient. I will continue to follow along very closely with you with further recommendations to be made as [facility] Dictated By: CLARA DA SILVA/JENNIFER Conf#: [id number] DID#: [id number] CC: YI BANGURA MD;*EndCC*
[2016-10-22] VITALS (12 sets, daily range): BP systolic 92–118; BP diastolic 49–64; PULSE 69–98; RESP 15–18
[2016-10-22] MEDS: ACCUCHECK XX SCH (02:00)
[2016-10-22] MEDS: PANTOPRAZOLE (EC) 40 MG TAB PO SCH (05:32)
[2016-10-22] MEDS: INSULIN ASPART [NOVOLOG] 3 ML PEN SC SCH ×3 (08:00→17:40)
[2016-10-22] MEDS: PAROXETINE 20 MG TAB PO SCH (08:58)
[2016-10-22] MEDS: DONEPEZIL 10 MG TAB PO SCH (08:58)
[2016-10-22] MEDS: TERBINAFINE 250 MG TAB PO SCH (08:58)
[2016-10-22] MEDS: CIPROFLOXACIN 400MG/D5W 200 ML IVPB SCH (08:58)
[2016-10-22] MEDS: CARBIDOPA/LEVODOPA (25/100) TAB PO SCH (08:58)
[2016-10-22] MEDS: GABAPENTIN 300 MG CAP PO SCH (08:58)
[2016-10-22] MEDS: ASPIRIN (EC) 81 MG TAB PO SCH (08:58)
[2016-10-22] MEDS: AMLODIPINE 5 MG TAB PO SCH (08:59)
[2016-10-22] MEDS: BENAZEPRIL 20 MG TAB PO SCH (08:59)
[2016-10-22] MEDS: ENOXAPARIN 40 MG/0.4 ML SYG SC SCH (09:07)
--- NOTE | 2016-10-22 15:37 | DS ---
Date/Time of Note Date/Time of Note DATE: 10/22/16 TIME: 15:26 Discharge Summary Admission/Discharge Info Admit Date/Time Oct 19, 2016 at 19:07 Discharge Date/Time Final Diagnosis 1. Urinary tract infection. on cipro 2. slightly elevated troponin, no chest pain negative ECG, likely sepsis related 3. Lactic acidosis. resolved 4. Resting tremor, possibly from Parkinson's. follow up with PCP 5. History of stroke cerebrovascular accident x3. 6. Hypertension. stable 7. History of dyslipidemia. 8. Diabetes. controlled Patient Condition: Stable Hospital Course The patient is an 81-year-old female with a history of dementia, questionable Parkinson's disease, CVA x3, hypertension, dyslipidemia, diabetes who presented to the emergency department with the above stated chief complaint. Her symptoms have been going on for the past 2 weeks. Also there was a report of painful urination as well as urinary incontinence. Chest pain is left-side and is worse with palpation as well as movement of left arm. The patient also has been experiencing tremors of her bilateral upper extremity for the past 3 months , which has been progressively getting worse. There was no official diagnosis of Parkinson's disease. When patient presented to the ER she was tachycardic with a heart rate of 138. Otherwise, the rest of her vitals were stable. Laboratory value shows a potassium of 3.1 and glucose of 242. Otherwise, CBC and CMP are within normal limits. Initial lactic acid 3.3, repeat 1.3. Urinalysis is consistent with a UTI. Chest x-ray shows no evidence for acute cardiopulmonary disease. Patient is on antibiotics for UTI. Symptoms improved. Lactic acidosis resolved. She will be discharged with oral cipro. Her troponin went up to 0.041. No chest pain or ECG changes. It is considered sepsis from UTI related. Home Meds Active Scripts Ciprofloxacin Hcl* (Ciprofloxacin Hcl*) 250 Mg Tablet, 250 MG PO BID for 7 Days , #14 TAB Prov:YI FLORES MD 10/21/16 Reported Medications Aspirin* (Aspirin* EC) 81 Mg Tablet.dr, 81 MG PO DAILY, TAB 10/19/16 Hydralazine Hcl* (Hydralazine Hcl*) 25 Mg Tab, 25 MG PO Q8, #90 TAB 10/19/16 Amlodipine Besylate* (Norvasc*) 5 Mg Tablet, 5 MG PO DAILY, TAB 10/19/16 Meclizine Hcl* (Meclizine Hcl*) 25 Mg Tablet, 25 MG PO Q8H Y for DIZZINESS, TAB 10/19/16 Pantoprazole* (Pantoprazole*) 40 Mg Tablet.dr, 40 MG PO DAILY, TAB 10/19/16 Paroxetine Hcl* (Paroxetine*) 20 Mg Tablet, 20 MG PO DAILY, #30 10/19/16 Metformin Hcl* (Metformin Hcl*) 1,000 Mg Tablet, 1000 MG PO BID, #60 10/19/16 Atorvastatin Calcium (Atorvastatin Calcium) 20 Mg Tablet, 20 MG PO QHS, #30 10/19/16 Donepezil* (Aricept*) 10 Mg Tablet, 10 MG PO DAILY, #30 10/19/16 Gabapentin* (Gabapentin*) 300 Mg Capsule, 300 MG PO DAILY, #30 10/19/16 Terbinafine Hcl* (Terbinafine Hcl*) 250 Mg Tablet, 250 MG PO DAILY, #30 10/19/16 Benazepril Hcl* (Benazepril Hcl*) 20 Mg Tablet, 20 MG PO DAILY, #60 10/19/16 Lorazepam* (Lorazepam*) 1 Mg Tablet, 1 MG PO DAILY for ANXIETY, #30 10/19/16 Carbidopa-Levodopa* (Sinemet*) 25-100 Mg Tab, 1 TAB PO DAILY, #30 10/19/16 Discontinued Reported Medications Metformin* (Glucophage*) 500 Mg Tab, 500 MG PO BID 08/25/13 Amlodipine Besylate* (Amlodipine Besylate*) 5 Mg Tablet, 5 MG PO DAILY 08/25/13 Meclizine Hcl (Motion Relief) 25 Mg Tablet, 25 MG PO BID 08/25/13 Hydralazine Hcl* (Apresoline*) 50 Mg Tab, 50 MG PO TID 08/25/13 Gabapentin (GABAPENTIN) 300 Mg/6 Ml Solution, 300 MG PO HS 08/25/13 Benazepril-Hydrochlorothiazide (Benazepril-Hydrochlorothiazide) 1 Each Tablet, 1 EACH PO BID 08/25/13 Aspirin* (Ecotrin*) 81 Mg Tablet.dr, 81 MG PO DAILY 08/25/13 Donepezil* (Aricept*) 5 Mg Tablet, 5 MG PO daily 08/25/13 Discontinued Scripts Nitrofurantoin Monohyd Macrocr* (Macrobid*) 100 Mg Capsr, 100 MG PO BID for 7 Days, CAP Prov:CARLI PEÑA MD 06/30/16 Pending Labs Laboratory Tests Test 10/21/16 17:18 10/21/16 20:22 10/22/16 08:26 10/22/16 12:01 Bedside Glucose 139mg/dL (70-220) 118mg/dL (70-220) 101mg/dL (70-220) 127mg/dL (70-220) YI FLORES MD Oct 22, 2016 15:37
--- NOTE | 2016-10-22 16:16 | CONS ---
Date/Time of Note Date/Time of Note DATE: 10/22/16 TIME: 16:12 Assessment/Plan Assessment/Plan Chief Complaint/Hosp Course IMPRESSION: 1. Chest pain, currently resolved by son at bedside with negative troponins x3 and normal ejection fraction by echocardiogram./no sig changes on serial ecg 2. Hypertension, labile but currently reasonable. 3. Dyslipidemia. 4. Altered mental state. 5. History of cerebrovascular accident. 6. Neck pain. 7. Parkinson's. 8. Diabetes mellitus. 9. Urinary tract infection. Recc: -tele -Continue norvasc -Continue benzapril -Continue asa -D/C hydralazine given marginal BP -D/C planning with outpatient f/u 2-3 weeks Problems: Consultation Date/Type/Reason Admit Date/Time Oct 19, 2016 at 19:07 Initial Consult Date 10/21/2016 Type of Consultation: Cardiology Reason for Consultation Chest pain Referring Provider: YI FLORES MD Exam/Review of Systems Vital Signs Vitals Vital Signs Date Time Temp Pulse Resp B/P Pulse Ox O2 Delivery O2 Flow Rate FiO2 10/22/16 16:05 90 10/22/16 15:54 98.1 18 110/58 96 10/22/16 00:00 Room Air Intake and Output 10/21/16 10/21/16 10/22/16 15:00 23:00 07:00 Intake Total 400 ml 450 ml Balance 400 ml 450 ml Exam Review of Systems: CONSTITUTIONAL: No fevers, chills. PULMONARY: No sob CARDIOVASCULAR: No chest pain/palpitations GASTROINTESTINAL: No nausea/vomiting. GENITOURINARY: No hematuria/dysuria. MUSCULOSKELETAL: No myagias/arthalgias. PSYCHIATRIC: The patient denies depression. NEUROLOGIC: No weakness Constitutional: alert, oriented Psych: no complaints Head: normocephalic ENMT: mucosa pink and moist Neck: jvd (8-9 cm water), supple Respiratory: clear to auscultation Cardiovascular: regular rate and rhythm Gastrointestinal: non-tender, soft Musculoskeletal: muscle tone (normal) Extremities: edema (none) Neurological: other (NO focal deficits) Results Result Diagram: 10/21/16 0650 10/21/16 0650 Results 24 hrs Laboratory Tests Test 10/21/16 17:18 10/21/16 20:22 10/22/16 08:26 10/22/16 12:01 Bedside Glucose 139 118 101 127 Medications Medications Current Medications Lorazepam (Ativan) 0.5 mg Q6H PRN IV ANXIETY Last administered on 10/21/16 05: 24; Admin Dose 0.5 MG; Start 10/19/16 at 22:30 Ondansetron HCl (Zofran Inj) 4 mg Q6H PRN IV NAUSEA AND/OR VOMITING; Start at 22:30 Nitroglycerin (Nitroglycerin (Sl Tab) 0.4 Mg) 1 tab Q5M PRN SL CHEST PAIN; Start 10/19/16 at 22:30 Acetaminophen (Tylenol Tab) 650 mg Q6H PRN PO PAIN LEVEL 1-3 OR FEVER; Start at 22:30 Morphine Sulfate (morphine) 2 mg Q4H PRN IV PAIN LEVEL 7-10; Start 10/19/16 at 22:30 Enoxaparin Sodium (Lovenox) 40 mg DAILY SC Last administered on 10/22/16 09:07 ; Admin Dose 40 MG; Start 10/20/16 at 09:00 Amlodipine Besylate (Norvasc) 5 mg DAILY PO Last administered on 10/22/16 08:59 ; Admin Dose 5 MG; Start 10/20/16 at 09:00 Aspirin (Halfprin) 81 mg DAILY PO Last administered on 10/22/16 08:58; Admin Dose 81 MG; Start 10/20/16 at 09:00 Atorvastatin Calcium (Lipitor) 20 mg QHS PO Last administered on 10/21/16 20:18 ; Admin Dose 20 MG; Start 10/20/16 at 21:00 Benazepril HCl (Lotensin) 20 mg DAILY PO Last administered on 10/22/16 08:59; Admin Dose 20 MG; Start 10/20/16 at 09:00 Carbidopa/Levodopa (Sinemet (25/ 100)) 1 tab DAILY PO Last administered on 08:58; Admin Dose 1 TAB; Start 10/20/16 at 09:00 Donepezil HCl (Aricept) 10 mg DAILY PO Last administered on 10/22/16 08:58; Admin Dose 10 MG; Start 10/20/16 at 09:00 Gabapentin (Neurontin) 300 mg DAILY PO Last administered on 10/22/16 08:58; Admin Dose 300 MG; Start 10/20/16 at 09:00 Hydralazine HCl (Apresoline) 25 mg Q8 PO Last administered on 10/22/16 05:35; Admin Dose 25 MG; Start 10/19/16 at 22:30 Meclizine HCl (Antivert) 25 mg Q8H PRN PO DIZZINESS; Start 10/19/16 at 22:30 Pantoprazole (Protonix Tab) 40 mg DAILY@06 PO Last administered on 10/22/16 05: 32; Admin Dose 40 MG; Start 10/20/16 at 06:00 Paroxetine HCl (Paxil) 20 mg DAILY PO Last administered on 10/22/16 08:58; Admin Dose 20 MG; Start 10/20/16 at 09:00 Terbinafine HCl 250 mg 250 mg DAILY PO Last administered on 10/22/16 08:58; Admin Dose 250 MG; Start 10/20/16 at 09:00 Ciprofloxacin/ Dextrose (Cipro Ivpb) 200 ml @ 200 mls/hr Q12 IVPB Last administered on 10/22/16 08:58; Admin Dose 200 MLS/HR; Start 10/20/16 at 09:00 Insulin Glargine (Lantus) 12 unit QHS SC Last administered on 10/21/16 20:30; Admin Dose 12 UNIT; Start 10/19/16 at 22:30 Diagnostic Test (Pha) (Accucheck) 1 ea 02 XX Last administered on 10/21/16 02: 00; Admin Dose 1 EA; Start 10/20/16 at 02:00 Miscellaneous Information 1 ea NOTE XX ; Start 10/19/16 at 23:00 Glucose (Glutose) 15 gm Q15M PRN PO DECREASED GLUCOSE; Start 10/19/16 at 23:00 Glucose (Glutose) 22.5 gm Q15M PRN PO DECREASED GLUCOSE; Start 10/19/16 at 23: 00 Dextrose (D50w Syringe) 25 ml Q15M PRN IV DECREASED GLUCOSE; Start 10/19/16 at 23:00 Dextrose (D50w Syringe) 50 ml Q15M PRN IV DECREASED GLUCOSE; Start 10/19/16 at 23:00 Glucagon (Glucagen) 1 mg Q15M PRN IM DECREASED GLUCOSE; Start 10/19/16 at 23:00 Glucose (Glutose) 15 gm Q15M PRN BUCCAL DECREASED GLUCOSE; Start 10/19/16 at 23 :00 CLARA REIS Oct 22, 2016 16:16
--- NOTE | 2016-10-22 18:40 | RADRPT ---
Vent Rate: 87 bpm RR Interval: 0 msec [place] Interval: 164 msec QRS Duration: 70 msec QT Interval: 400 msec QTC Interval: 481 msec P-R-T [place]: 1 - 19 - 29 degrees Normal sinus rhythm Low voltage QRS Borderline ECG Electronically Signed By: Drew Osuna [id number]
--- NOTE | 2016-10-22 18:42 | RADRPT ---
Vent Rate: 86 bpm RR Interval: 0 msec [place] Interval: 166 msec QRS Duration: 80 msec QT Interval: 420 msec QTC Interval: 502 msec P-R-T [place]: 30 - 24 - 33 degrees Normal sinus rhythm Prolonged QT Abnormal ECG Electronically Signed By: Drew Osuna [id number]
== END 2016-10-22 18:29 | DRG 690 ==
LOC: E/R 13:55 → MS4 19:07
PROVIDERS: ADMIT Internal Medicine; ATTEND Internal Medicine
DX: N39.0 Urinary tract infection, site not specified (principal); E87.2 Acidosis; E11.9 Type 2 diabetes mellitus without complications; G20 Parkinson's disease; M94.0 Chondrocostal junction syndrome [Tietze]; E86.0 Dehydration; Z86.73 Personal history of transient ischemic attack (TIA), and cerebral infarction without residual deficits; E78.5 Hyperlipidemia, unspecified; M54.2 Cervicalgia; E87.6 Hypokalemia
CPT/HCPCS: 71010; 80048; 80053; 80061; 81001; 81003; 82150; 82550; 82553; 82962; 83036; 83605; 83690; 83735; 84443; 84484; 85025; 85610; 85730; 87040; 87086; 93005; 93306; 96374; 96375; 97110; 97163; 97530; J0696; J0744; J1650; J1815; J2060; J2405; J3475; J7030